=== PATIENT | female | born 1995 | race African-American/Black ===

== ENCOUNTER 2017-10-11 17:36 | Emergency (ER) | payer OTHER ==
[~2017-10-11] VITALS: Ht 157.5 cm; Wt 70.0 kg
[2017-10-11 17:42] VITALS: BP 92/58; PULSE 113; RESP 20; TEMP 98.9; O2SAT 99
--- NOTE | 2017-10-11 19:42 | PD ---
HPI Chief Complaint: GI Complaint Time Seen by Provider: 19:16 Travel History International Travel<30 days: No Contact w/Intl Traveler<30days: No Traveled to known affect area: No History of Present Illness HPI 22-year-old Afro[place] female presents the emergency department with constipation since yesterday. Patient states she felt well yesterday, but woke up at midnight with the urge to defecate, and had a little bit consisting of some small pellet sized stool. She is felt discomfort in the abdomen, but no nausea or vomiting. Patient is continued to the day today. She has not had fever, chills, urinary symptoms. She continues to have the urge to defecate but does not feel she is moving anything. Patient has tried some over-the- counter Ex-Lax, and liquid stool softener. Patient states her pain is 7/10. However does not appear in any significant distress. She has no allergies to medication, but states she is allergic to seafood. PFSH Past Medical History Medical History: Denies Significant Hx Diminished Hearing: No Immunizations Current: Yes ?: Not Past Surgical History Surgical History: No Previous Surgery Social History Alcohol Use: No Tobacco Use: No Substance Use: No Allergies-Medications (Allergen,Severity, Reaction): Uncoded Allergies: SEAFOOD (Allergy, Severe, 10/11/17) Reported Meds & Prescriptions Reported Meds & Active Scripts Active Glycerin Adult Supp (Glycerin) 2 Gm Supp 2 Gm RECTAL BID PRN Miralax Powder (Polyethylene Glycol 3350 Powder) 17 Gm Powd 17 Gm PO DAILY Mix and dissolve one measuring cap-ful (17 grams) in water or juice. Review of Systems Except as stated in HPI: all other systems reviewed are Neg General / Constitutional: No: Fever, Chills Eyes: No: Visual changes HENT: No: Headaches Cardiovascular: No: Chest Pain or Discomfort Respiratory: No: Shortness of Breath Gastrointestinal: Positive: Abdominal Pain, Constipation, No: Nausea, Vomiting , Diarrhea, Hematemesis, Hematochezia, Indigestion, Dysphagia, Loss of Appetite Genitourinary: No: Dysuria Musculoskeletal: No: Pain Skin: No Rash Neurologic: No: Weakness Psychiatric: No: Depression Endocrine: No: Polydipsia Hematologic/Lymphatic: No: Easy Bruising Physical Exam Narrative GENERAL: Patient appears in no distress at all. SKIN: Warm and dry. Normal color. Normal turgor. HEAD: Atraumatic. Normocephalic. EYES: Pupils equal and round. No scleral icterus. No injection or drainage. ENT: No nasal bleeding or discharge. Mucous membranes pink and moist. Thanks is clear. Airway is patent NECK: Trachea midline. Supple. CARDIOVASCULAR: Regular rate and rhythm. RESPIRATORY: No accessory muscle use. Clear to auscultation. Breath sounds equal bilaterally. GASTROINTESTINAL: Abdomen soft, mild nonspecific lower abdominal tenderness, nondistended. Bowel sounds present in all quadrants. Hepatic and splenic margins not palpable. No CVA tenderness. MUSCULOSKELETAL: Extremities without clubbing, cyanosis, or edema. No obvious deformities. NEUROLOGICAL: Awake and alert. No obvious cranial nerve deficits. Motor grossly within normal limits. Five out of 5 muscle strength in the arms and legs. Normal speech. PSYCHIATRIC: Appropriate mood and affect; insight and judgment normal. Data Data Last Documented VS Vital Signs Date Time Temp Pulse Resp B/P (MAP) Pulse Ox O2 Delivery O2 Flow Rate FiO2 10/11/17 17:42 98.9 113 20 92/58 (69) 99 Orders Orders Abdomen, Flat & Upright (10/11/17 19:35) Urinalysis - C+S If Indicated (10/11/17 19:35) Ed Urine Pregnancytest Poc (10/11/17 19:35) Labs Laboratory Tests Test 10/11/17 19:40 Urine Color YELLOW Urine Turbidity CLEAR Urine pH 6.5 Urine Specific [place] 1.013 Urine Protein NEG mg/dL Urine Glucose (UA) NEG mg/dL Urine Ketones NEG mg/dL Urine Occult Blood MOD Urine Nitrite NEG Urine Bilirubin NEG Urine Urobilinogen LESS THAN 2.0 MG/DL Urine Leukocyte Esterase TRACE Urine RBC 149 /hpf Urine WBC 6 /hpf Urine Squamous Epithelial Cells 1 /hpf Urine Mucus FEW /lpf Microscopic Urinalysis Comment CULT NOT INDICATED MDM Medical Decision Making Medical Screen Exam Complete: Yes Emergency Medical Condition: Yes Differential Diagnosis Constipation. Ileus. Bowel Obstruction. Narrative Course Urinalysis is obtained, urine is ordered. KUB and upright is ordered. Urine is unremarkable. KUB shows no acute abdomen radiologist Patient was treated with MiraLAX as directed as well as glycerin suppositories 3 times a day as needed. Patient is to push fluids and avoid too much fiber. Patient follow up if symptoms do not resolve in the next several days. Diagnosis Primary Impression: Constipation Referrals: Primary Care Physician Patient Instructions: Constipation (ED), General Instructions Additional Instructions: Urine is unremarkable. KUB shows no acute abdomen radiologist Patient was treated with MiraLAX as directed as well as glycerin suppositories 3 times a day as needed. Patient is to push fluids and avoid too much fiber. Patient follow up if symptoms do not resolve in the next several days. Med/Other Pt SpecificInfo: Prescription(s) given Scripts Glycerin Adult Supp (Glycerin Adult Supp) 2 Gm Supp 2 GM RECTAL BID Y for CONSTIPATION, #6 SUPP 0 Refills Prov: Bud Aggarwal MD 10/11/17 Polyethylene Glycol 3350 Powder (Miralax Powder) 17 Gm Powd 17 GM PO DAILY for Constipation, #1 CAN 0 Refills Mix and dissolve one measuring cap-ful (17 grams) in water or juice. Prov: Bud Aggarwal MD 10/11/17 Disposition: 01 DISCHARGE HOME Condition: Stable Daniel Rivas Oct 11, 2017 19:42
[2017-10-11] MEDS ORDERED: MIRA3350 PO (20:21)
[2017-10-11] MEDS ORDERED: GLYC2SUP RECTAL (20:21)
[2017-10-11 20:26] LABS: BILIRUBIN, URINE NEG (NEG); BLOOD, URINE MOD (NEG); GLUCOSE,URINE NEG (NEG); KETONE, URINE NEG (NEG); MUCUS URINE FEW /lpf (OCC); NITRITE,URINE NEG (NEG); PH, URINE 6.5 (5.0-8.5); SQUAMOUS EPITHELIAL CELL URINE 1 /hpf (0-5); URINE COLOR YELLOW (YELLW/STRAW); URINE LEUKOCYTE ESTERASE TRACE (NEG)
--- NOTE | 2017-10-11 20:26 | RADRPT ---
EXAM DATE/TIME: 10/11/2017 20:00 [facility] COMPARISON: No previous studies available for comparison. INDICATIONS : Abdominal pain MEDICAL HISTORY : None. SURGICAL HISTORY : None. ENCOUNTER: Initial ACUITY: 1 day PAIN SCORE: 5/10 LOCATION: Abdomen FINDINGS: Supine and upright views of the abdomen were performed. The abdominal bowel gas pattern is normal. No air fluid levels are seen. No abnormal masses, calcifications, or organomegaly is seen. The visu alized lower lungs are clear. No evidence of free intraperitoneal gas. The osseous structures are u nremarkable. CONCLUSION: Benign-appearing abdomen. Priyank Bonilla MD on October 11, 2017 at 20:23 Board Certified Radiologist. This report was verified electronically.
== END 2017-10-11 20:54 | disposition home or self-care (01) ==
LOC: NEPC 17:36
DX: K59.00 Constipation, unspecified (principal)
CPT/HCPCS: 74019; 81001; 84703; 99284